=== PATIENT | female | born 1945 | race Two or more races ===

== ENCOUNTER 2019-08-10 17:44 | Emergency (ER) | payer MEDICARE, OTHER ==
[~2019-08-10] VITALS: Ht 152.4 cm; Wt 70.3 kg
[2019-08-10 18:14] VITALS: BP 214/106
[2019-08-10] MEDS ORDERED: cloNIDine HCL 0.1 MG TAB ONE (18:29)
[2019-08-10] MEDS ORDERED: cloNIDine HCL 0.1 MG TAB PO ONE (18:30)
== END 2019-08-10 22:19 | disposition home or self-care (01) ==
LOC: ER 18:04
DX: S93.401A Sprain of unspecified ligament of right ankle, initial encounter (principal); E11.9 Type 2 diabetes mellitus without complications; E78.5 Hyperlipidemia, unspecified; I10 Essential (primary) hypertension; Z76.0 Encounter for issue of repeat prescription; W01.0XXA Fall on same level from slipping, tripping and stumbling without subsequent striking against object, initial encounter; Y93.89 Activity, other specified; Y99.8 Other external cause status; Y92.59 Other trade areas as the place of occurrence of the external cause
CPT/HCPCS: 73600

== ENCOUNTER 2020-12-25 17:45 | Inpatient (IN) | payer MEDICARE ==
[~2020-12-25] VITALS: Ht 160 cm; Wt 68.0 kg
[2020-12-25] MEDS ORDERED: HYDROcodone-ACET 5/325MG TAB PO ONE (18:45)
[2020-12-25 21:13] LABS: Basophils # (auto) 0 10 ^3/uL (0-0.2); Basophils % (auto) 0.6 % (0.0-2.0); Eosinophils # (auto) 0.1 10 ^3/uL (0-0.8); Eosinophils % (auto) 1.3 % (0.0-7.0); Hematocrit 39.8 % (36.0-46.0); Hemoglobin 13.7 g/dL (12.2-16.2); Lymphocytes # (auto) 1.2 10 ^3/uL (0.4-5.4); Lymphocytes % (auto) 22.7 % (10.0-50.0); Mean Corpuscular Hemoglobin 29.2 pg (28.0-32.0); Mean Corpuscular Hgb Conc. 34.4 g/dL (32.0-36.0); Mean Corpuscular Volume 84.9 fL (80.0-100.0); Monocytes # (auto) 0.5 10 ^3/uL (0-1.3); Monocytes % (auto) 9.8 % (0.0-12.0); Neutrophils # (auto) 3.4 10 ^3/uL (1.6-8.6); Neutrophils % (auto) 65.6 % (37.0-80.0); Red Blood Cells 4.69 10^6/uL (4.0-5.20); Red Cell Distribution Width 13.7 % (11.8-14.3); White Blood Cell 5.1 10^3/uL (4.4-10.8)
[2020-12-25 21:23] LABS: Albumin 3.4 g/dL (3.4-5.0); BUN/Creatinine Ratio 18.9; Calcium 8.7 mg/dL (8.5-10.1)
[2020-12-25 21:26] LABS: Bilirubin, Total 0.6 mg/dL (0.2-1.0); Total Protein 7.1 g/dL (6.4-8.2)
[2020-12-25 21:30] LABS: INR 0.97 (0.9-1.15); Partial Thromboplastin Time 23.8 sec (23.0-31.2)
[2020-12-25] MEDS ORDERED: cloNIDine HCL 0.1 MG TAB PO PRN (21:45)
[2020-12-25] MEDS ORDERED: HYDROcodone-ACET 5/325MG TAB PO PRN (21:45)
[2020-12-25] MEDS ORDERED: TEMAZEPAM 15 MG CAP PO PRN (21:45)
[2020-12-25] MEDS ORDERED: ACETAMINOPHEN 325 MG TAB PO PRN (21:45)
[2020-12-25] MEDS ORDERED: SODIUM CHLORIDE 0.9% 500 ML IV ONE (21:45)
[2020-12-25] MEDS: FAMOTIDINE 20 MG TAB PO SCH (21:47)
[2020-12-25] MEDS ORDERED: FAMOTIDINE 20 MG TAB PO SCH (22:00)
[2020-12-25] MEDS: MORPHINE SULFATE 4 MG/ML SYR/VIAL IV PRN (22:02)
[2020-12-25] MEDS: ONDANSETRON HCL 4 MG/2 ML VIAL IV PRN (22:02)
[2020-12-25] MEDS ORDERED: DEXTROSE (50%) 50ML SYRG IV PRN (23:30)
[2020-12-25] MEDS ORDERED: InsuLIN REG 1unit/0.01ml Soln (100units/ml) IV ONE (23:30)
[2020-12-26] MEDS: MORPHINE SULFATE 4 MG/ML SYR/VIAL IV PRN (05:28)
[2020-12-26] MEDS: ONDANSETRON HCL 4 MG/2 ML VIAL IV PRN (05:28)
[2020-12-26] MEDS: InsuLIN REG 1unit/0.01ml Soln (100units/ml) SC SCH ×2 (06:32→12:30)
[2020-12-26] MEDS: ACCU-CHEK COMFORT CURVE STRIP VI SCH ×2 (06:33→12:25)
[2020-12-26 07:12] LABS: Basophils # (auto) 0 10 ^3/uL (0-0.2); Basophils % (auto) 0.5 % (0.0-2.0); Eosinophils # (auto) 0.1 10 ^3/uL (0-0.8); Eosinophils % (auto) 2.5 % (0.0-7.0); Hematocrit 35.7 % (36.0-46.0); Hemoglobin 12.2 g/dL (12.2-16.2); Lymphocytes # (auto) 1.1 10 ^3/uL (0.4-5.4); Lymphocytes % (auto) 18.9 % (10.0-50.0); Mean Corpuscular Hemoglobin 29.4 pg (28.0-32.0); Mean Corpuscular Hgb Conc. 34.2 g/dL (32.0-36.0); Monocytes # (auto) 0.6 10 ^3/uL (0-1.3); Monocytes % (auto) 10.7 % (0.0-12.0); Neutrophils % (auto) 67.4 % (37.0-80.0); Red Blood Cells 4.15 10^6/uL (4.0-5.20); Red Cell Distribution Width 13.8 % (11.8-14.3)
[2020-12-26 07:33] LABS: BUN/Creatinine Ratio 33.3; Calcium 8.5 mg/dL (8.5-10.1); Potassium 3.9 mmol/L (3.5-5.1)
[2020-12-26] MEDS: FAMOTIDINE 20 MG TAB PO SCH (10:14)
[2020-12-26] MEDS ORDERED: AMLO-489 PO ×2 (11:12→12:07)
[2020-12-26] MEDS ORDERED: SIMV-8 PO ×2 (11:12→12:07)
[2020-12-26] MEDS ORDERED: METF-370 PO ×2 (11:12→12:07)
[2020-12-26] MEDS ORDERED: METO25TA5 PO ×2 (11:12→12:07)
[2020-12-26] MEDS ORDERED: LISI40TA11 PO (11:12)
[2020-12-26 13:55] VITALS: BP 107/47
== END 2020-12-26 14:50 | disposition home or self-care (01) | DRG 563 ==
LOC: ER 17:45 → OVERFLOW 21:40
PROVIDERS: ADMIT Nurse Practitioner; ATTEND Internal Medicine
DX: S42.211A Unspecified displaced fracture of surgical neck of right humerus, initial encounter for closed fracture (principal); I10 Essential (primary) hypertension; E11.9 Type 2 diabetes mellitus without complications; E78.5 Hyperlipidemia, unspecified; W01.0XXA Fall on same level from slipping, tripping and stumbling without subsequent striking against object, initial encounter; Y93.89 Activity, other specified; Y92.89 Other specified places as the place of occurrence of the external cause; Y99.8 Other external cause status; Z20.822 Contact with and (suspected) exposure to COVID-19
CPT/HCPCS: 36415; 70450; 73060; 73070; 73130; 73200; 80048; 80053; 82962; 85025; 85610; 85730; 87426; 93971; 96360; G0378; J2405

== ENCOUNTER 2022-04-20 13:33 | Inpatient (IN) | payer MEDICARE ==
[~2022-04-20] VITALS: Ht 152.4 cm; Wt 60.4 kg
[~2022-04-20 13:33] MED LIST: AMLO-489 PO; LISI40TA11 PO; METF-370 PO; METO25TA5 PO; SIMV-8 PO
[2022-04-20 14:40] LABS: Basophils # (auto) 0 10 ^3/uL (0-0.2); Basophils % (auto) 0.3 % (0.0-2.0); Eosinophils # (auto) 0 10 ^3/uL (0-0.8); Hematocrit 36.3 % (36.0-46.0); Hemoglobin 12.5 g/dL (12.2-16.2); Lymphocytes # (auto) 0.4 10 ^3/uL (0.4-5.4); Lymphocytes % (auto) 3.9 % (10.0-50.0); Mean Corpuscular Hemoglobin 28.9 pg (28.0-32.0); Mean Corpuscular Hgb Conc. 34.3 g/dL (32.0-36.0); Mean Corpuscular Volume 84.3 fL (80.0-100.0); Monocytes # (auto) 0.8 10 ^3/uL (0-1.3); Monocytes % (auto) 7.1 % (0.0-12.0); Neutrophils % (auto) 88.7 % (37.0-80.0); Nucleated Red Blood Cells % 0.1 %; Red Blood Cells 4.31 10^6/uL (4.0-5.20); Red Cell Distribution Width 13.8 % (11.8-14.3); White Blood Cell 11.3 10^3/uL (4.4-10.8)
[2022-04-20 15:02] LABS: BUN/Creatinine Ratio 18.5; Calcium 8.4 mg/dL (8.5-10.1); Potassium 4.2 mmol/L (3.5-5.1)
[2022-04-20 15:16] LABS: Bilirubin, Total 3.4 mg/dL (0.2-1.0); Total Protein 7.2 g/dL (6.4-8.2)
[2022-04-20] MEDS ORDERED: IOHEXOL 300 MG/ML 100ML BOTTLE IJ ONE (17:07)
[2022-04-20] MEDS ORDERED: fentaNYL CITRATE 100 MCG/2 ML VL IV ONE (17:30)
[2022-04-20] MEDS ORDERED: ONDANSETRON HCL 4 MG/2 ML VIAL IV ONE (17:30)
[2022-04-20 18:45] LABS: Urine Bacteria FEW /hpf (None Seen); Urine Blood Negative /uL (Negative); Urine Specific Gravity 1.031 (1.001-1.035); Urine WBC 1 /hpf (0 - 5)
[2022-04-20] MEDS ORDERED: ONDANSETRON HCL 4 MG/2 ML VIAL IV PRN (22:00)
[2022-04-20] MEDS ORDERED: HYDROcodone-ACET 5/325MG TAB PO PRN (22:00)
[2022-04-20] MEDS ORDERED: ACETAMINOPHEN 325 MG TAB PO PRN (22:00)
[2022-04-20] MEDS ORDERED: DEXTROSE (50%) 50ML SYRG IV PRN (22:00)
[2022-04-20] MEDS: SODIUM CHLORIDE 0.9% 1,000 ML IV SCH (22:00)
[2022-04-20] MEDS ORDERED: MORPHINE SULFATE INJ 2 MG/ml SYRG IV PRN (23:00)
[2022-04-20] MEDS ORDERED: NITROGLYCERIN 0.4 MG SL TAB SL PRN (23:00)
[2022-04-21] MEDS ORDERED: metroNIDAZOLE 500MG/100ML 100 ML IV ONE (02:00)
[2022-04-21] MEDS: metroNIDAZOLE 500MG/100ML 100 ML IV SCH ×3 (05:30→22:12)
[2022-04-21] MEDS: ACCU-CHEK COMFORT CURVE STRIP VI SCH ×4 (06:00→17:58)
[2022-04-21] MEDS: InsuLIN REG 1unit/0.01ml Soln (100units/ml) SC SCH ×4 (07:30→17:58)
[2022-04-21 07:53] LABS: Basophils # (auto) 0 10 ^3/uL (0-0.2); Basophils % (auto) 0.4 % (0.0-2.0); Eosinophils # (auto) 0 10 ^3/uL (0-0.8); Eosinophils % (auto) 0.1 % (0.0-7.0); Hematocrit 35.4 % (36.0-46.0); Lymphocytes # (auto) 1.1 10 ^3/uL (0.4-5.4); Lymphocytes % (auto) 9.5 % (10.0-50.0); Mean Corpuscular Hemoglobin 29.3 pg (28.0-32.0); Monocytes # (auto) 1.1 10 ^3/uL (0-1.3); Monocytes % (auto) 9.9 % (0.0-12.0); Neutrophils % (auto) 80.1 % (37.0-80.0); Red Blood Cells 4.12 10^6/uL (4.0-5.20); Red Cell Distribution Width 13.8 % (11.8-14.3); White Blood Cell 11.3 10^3/uL (4.4-10.8)
[2022-04-21 08:10] LABS: Albumin 2.5 g/dL (3.4-5.0); Calcium 8.2 mg/dL (8.5-10.1); Potassium 3.7 mmol/L (3.5-5.1)
[2022-04-21 08:13] LABS: BUN/Creatinine Ratio 22.2
[2022-04-21 08:27] LABS: Bilirubin, Total 6.2 mg/dL (0.2-1.0); Total Protein 6.6 g/dL (6.4-8.2)
[2022-04-21] MEDS ORDERED: FAMOTIDINE (10MG/ML) 2ML VL IV SCH (10:00)
[2022-04-21] MEDS: ENOXAPARIN SOD 40 MG/0.4 ML SYRINGE SC SCH (11:25)
[2022-04-21 15:27] VITALS: BP 155/77
[2022-04-21 17:00] VITALS: BP 139/67
[2022-04-21] MEDS: SODIUM CHLORIDE 0.9% 1,000 ML IV SCH (17:22)
[2022-04-21 22:00] VITALS: BP 157/67
[2022-04-22] MEDS: ACCU-CHEK COMFORT CURVE STRIP VI SCH ×5 (00:24→23:18)
[2022-04-22 05:00] VITALS: BP 174/87
[2022-04-22] MEDS: hydrALAZINE HCL 20 MG/ML VL IV PRN ×2 (05:14→21:00)
[2022-04-22] MEDS: InsuLIN REG 1unit/0.01ml Soln (100units/ml) SC SCH ×5 (05:37→23:18)
[2022-04-22] MEDS: metroNIDAZOLE 500MG/100ML 100 ML IV SCH ×2 (05:37→17:27)
[2022-04-22 06:02] LABS: Basophils # (auto) 0 10 ^3/uL (0-0.2); Basophils % (auto) 0.7 % (0.0-2.0); Eosinophils # (auto) 0.1 10 ^3/uL (0-0.8); Hematocrit 35.6 % (36.0-46.0); Hemoglobin 12.2 g/dL (12.2-16.2); Lymphocytes # (auto) 1.2 10 ^3/uL (0.4-5.4); Lymphocytes % (auto) 17.4 % (10.0-50.0); Mean Corpuscular Hemoglobin 29.6 pg (28.0-32.0); Mean Corpuscular Hgb Conc. 34.3 g/dL (32.0-36.0); Mean Corpuscular Volume 86.2 fL (80.0-100.0); Monocytes # (auto) 0.6 10 ^3/uL (0-1.3); Monocytes % (auto) 8.5 % (0.0-12.0); Neutrophils # (auto) 4.9 10 ^3/uL (1.6-8.6); Neutrophils % (auto) 72.4 % (37.0-80.0); Nucleated Red Blood Cells % 0.1 %; Red Blood Cells 4.13 10^6/uL (4.0-5.20); Red Cell Distribution Width 14.3 % (11.8-14.3); White Blood Cell 6.8 10^3/uL (4.4-10.8)
[2022-04-22 06:10] LABS: INR 1.07 (0.9-1.15)
[2022-04-22 06:23] LABS: Calcium 8.3 mg/dL (8.5-10.1); Magnesium 1.7 mg/dL (1.6-2.6); Potassium 3.2 mmol/L (3.5-5.1)
[2022-04-22 06:41] LABS: Albumin 2.5 g/dL (3.4-5.0); BUN/Creatinine Ratio 39.6; Bilirubin, Total 3.3 mg/dL (0.2-1.0)
[2022-04-22] MEDS: SODIUM CHLORIDE 0.9% 1,000 ML IV SCH (07:20)
[2022-04-22 09:00] VITALS: BP 115/60
[2022-04-22] MEDS: ENOXAPARIN SOD 40 MG/0.4 ML SYRINGE SC SCH (09:31)
[2022-04-22 09:47] LABS: Hepatitis A Ab IgM Negative; Hepatitis B Core IgM Negative; Hepatitis C Antibody Negative (Negative)
[2022-04-22] MEDS ORDERED: MAGNESIUM SULFATE 1GM/100ML 100 ML IV ONE (12:45)
[2022-04-22 13:00] VITALS: BP 161/88
[2022-04-22] MEDS: POTASSIUM CHL 20MEQ/100ML 100 ML IV SCH ×2 (14:45→15:30)
[2022-04-22 17:00] VITALS: BP 184/83
[2022-04-22] MEDS ORDERED: POTASSIUM CHL 20MEQ/100ML 100 ML IV SCH (20:30)
[2022-04-22 21:30] VITALS: BP_SYST 136; BP_SYST 178; BP_DIAS 67; BP_DIAS 85
[2022-04-23] MEDS: metroNIDAZOLE 500MG/100ML 100 ML IV SCH ×2 (00:58→05:47)
[2022-04-23 05:00] VITALS: BP 136/69
[2022-04-23] MEDS: ACCU-CHEK COMFORT CURVE STRIP VI SCH ×4 (05:46→23:08)
[2022-04-23] MEDS: InsuLIN REG 1unit/0.01ml Soln (100units/ml) SC SCH ×4 (05:47→23:12)
[2022-04-23] MEDS: SODIUM CHLORIDE 0.9% 1,000 ML IV SCH ×2 (05:47→13:45)
[2022-04-23 06:28] LABS: Potassium 4.1 mmol/L (3.5-5.1)
[2022-04-23 06:36] LABS: Albumin 2.3 g/dL (3.4-5.0); BUN/Creatinine Ratio 45.7; Calcium 7.9 mg/dL (8.5-10.1); Magnesium 2.1 mg/dL (1.6-2.6); Total Protein 6.5 g/dL (6.4-8.2)
[2022-04-23] MEDS: ENOXAPARIN SOD 40 MG/0.4 ML SYRINGE SC SCH (09:43)
[2022-04-23] MEDS ORDERED: FAMOTIDINE (10MG/ML) 2ML VL IV SCH (10:00)
[2022-04-23 13:00] VITALS: BP 156/62
[2022-04-23] MEDS: hydrALAZINE HCL 20 MG/ML VL IV PRN (20:55)
[2022-04-23 22:00] VITALS: BP 186/92
[2022-04-24] VITALS (7 sets, daily range): BP systolic 110–179; BP diastolic 50–83
[2022-04-24] MEDS: ACCU-CHEK COMFORT CURVE STRIP VI SCH ×3 (05:56→17:42)
[2022-04-24] MEDS: InsuLIN REG 1unit/0.01ml Soln (100units/ml) SC SCH ×3 (05:59→17:47)
[2022-04-24 06:02] LABS: Albumin 2.2 g/dL (3.4-5.0); Bilirubin, Direct 0.7 mg/dL (0-0.2); Bilirubin, Total 2.2 mg/dL (0.2-1.0); Total Protein 6.2 g/dL (6.4-8.2)
[2022-04-24] MEDS: SODIUM CHLORIDE 0.9% 1,000 ML IV SCH (06:05)
[2022-04-24] MEDS: ENOXAPARIN SOD 40 MG/0.4 ML SYRINGE SC SCH (10:00)
[2022-04-25] MEDS ORDERED: LISINOPRIL 20 MG TAB PO SCH (10:00)
[2022-04-25] MEDS ORDERED: amLODIPine BESYLATE 5 MG TAB PO SCH (10:00)
== END 2022-04-24 22:00 | disposition short-term general hospital (02) | DRG 444 ==
LOC: ER 13:33 → EDBD 13:33 → TELE 22:58 → TELE-CENTR 04-21 14:56
PROVIDERS: ADMIT Nurse Practitioner Family; ATTEND Internal Medicine
DX: K80.51 Calculus of bile duct without cholangitis or cholecystitis with obstruction (principal); G93.41 Metabolic encephalopathy; E87.1 Hypo-osmolality and hyponatremia; R65.10 Systemic inflammatory response syndrome (SIRS) of non-infectious origin without acute organ dysfunction; D72.829 Elevated white blood cell count, unspecified; E78.5 Hyperlipidemia, unspecified; E11.65 Type 2 diabetes mellitus with hyperglycemia; E86.0 Dehydration; E87.6 Hypokalemia; I10 Essential (primary) hypertension; R19.7 Diarrhea, unspecified; R74.8 Abnormal levels of other serum enzymes; R79.89 Other specified abnormal findings of blood chemistry; Z90.49 Acquired absence of other specified parts of digestive tract; Z79.84 Long term (current) use of oral hypoglycemic drugs
CPT/HCPCS: 36415; 74177; 74181; 76705; 80053; 80061; 80074; 80076; 81001; 82010; 82140; 82962; 83036; 83605; 83690; 83735; 84484; 85025; 85610; 86038; 86301; 93005; 96365; 96375; 97116; 97163; 97530; 99291; G0378; J1815; J2405; J3480; J3490

== ENCOUNTER 2024-05-10 12:30 | Inpatient (IN) | payer MEDICARE ==
[~2024-05-10] VITALS: Ht 152.4 cm; Wt 54.3 kg
[~2024-05-10 12:30] MED LIST changes: -AMLO-489 PO; +AMLO1TAB22 PO; -LISI40TA11 PO; +LISI40TA16 PO; -SIMV-8 PO; +SIMV20TA20 PO
[2024-05-10] MEDS: SODIUM CHLORIDE 0.9% 500 ML IV ONE (15:57)
[2024-05-10 18:48] LABS: Basophils # (auto) 0 10 ^3/uL (0-0.2); Basophils % (auto) 0.2 % (0.0-2.0); Eosinophils # (auto) 0 10 ^3/uL (0-0.8); Eosinophils % (auto) 0.1 % (0.0-7.0); Hematocrit 43.1 % (36.0-46.0); Hemoglobin 14.7 g/dL (12.2-16.2); Lymphocytes # (auto) 1.2 10 ^3/uL (0.4-5.4); Lymphocytes % (auto) 13.8 % (10.0-50.0); Mean Corpuscular Hemoglobin 30.2 pg (28.0-32.0); Mean Corpuscular Hgb Conc. 34.1 g/dL (32.0-36.0); Mean Corpuscular Volume 88.5 fL (80.0-100.0); Monocytes # (auto) 0.5 10 ^3/uL (0-1.3); Monocytes % (auto) 5.2 % (0.0-12.0); Neutrophils # (auto) 7.2 10 ^3/uL (1.6-8.6); Neutrophils % (auto) 80.7 % (37.0-80.0); Nucleated Red Blood Cells % 0.1 %; Red Blood Cells 4.87 10^6/uL (4.0-5.20); Red Cell Distribution Width 12.7 % (11.8-14.3); White Blood Cell 8.9 10^3/uL (4.4-10.8)
[2024-05-10 19:07] LABS: Alanine Aminotransferase 13 U/L (7-40); Albumin 4.3 g/dL (3.2-4.8); Alkaline Phosphatase 98 U/L (46-116); Anion Gap 16 (5-15); Aspartate Aminotransferase 16 U/L (13-40); BUN/Creatinine Ratio 23.6 (10.0-20.0); Blood Urea Nitrogen 64 mg/dL (9-23); Carbon Dioxide 15 mmol/L (20-30); Chloride 107 mmol/L (98-107); Glucose 262 mg/dL (74-106); Potassium 3.6 mmol/L (3.5-5.1); Sodium 138 mmol/L (136-145)
[2024-05-10 19:08] LABS: Bilirubin, Total 0.7 mg/dL (0.2-1.0); Total Protein 6.6 g/dL (5.7-8.2)
[2024-05-10 20:11] LABS: Base Excess -6.3 mmol/L (-2.0-2.0)
[2024-05-10] MEDS ORDERED: MORPHINE SULFATE INJ 2 MG/ml SYRG IV PRN (20:30)
[2024-05-10] MEDS ORDERED: DEXTROSE (50%) 50ML SYRG IV PRN (20:30)
[2024-05-10] MEDS ORDERED: DOCUSATE SOD 100 MG CAP PO PRN (20:30)
[2024-05-10] MEDS ORDERED: ACETAMINOPHEN 325 MG TAB PO PRN (20:30)
[2024-05-10] MEDS ORDERED: ONDANSETRON HCL 4 MG/2 ML VIAL IV PRN (20:30)
[2024-05-10] MEDS ORDERED: HYDROcodone-ACET 5/325MG TAB PO PRN (20:30)
[2024-05-10] MEDS ORDERED: NITROGLYCERIN 0.4 MG SL TAB SL PRN (20:30)
[2024-05-10 22:30] VITALS: PULSE 88; RESP 15; O2SAT 97
[2024-05-10] MEDS: SODIUM CHLORIDE 0.9% 1,000 ML IV SCH (22:30)
[2024-05-10] MEDS: SODIUM BICARB 8.4% 50Meq/50ml SYR Vial IV ONE (22:46)
[2024-05-10] MEDS: ATORVASTATIN 20 MG TAB PO SCH (22:47)
[2024-05-10] MEDS: InsuLIN REG 1unit/0.01ml Soln (100units/ml) SC SCH (23:43)
[2024-05-11] VITALS (8 sets, daily range): BP systolic 100–177; BP diastolic 48–104; PULSE 69–98; RESP 16–19; TEMP 97.6–98.3; O2SAT 95–99
[2024-05-11] MEDS: ACCU-CHEK COMFORT CURVE STRIP VI SCH (00:04)
[2024-05-11 03:36] LABS: Urine Bacteria MANY /hpf (None Seen); Urine Blood 1+ /uL (Negative); Urine Clarity Turbid (Clear); Urine Color Light-Orange (Yellow); Urine Hyaline Cast FEW /lpf (0 - 2); Urine Mucus FEW (None Seen); Urine Protein, UAD 1+ (Negative); Urine Specific Gravity 1.017 (1.001-1.035); Urine Urobilinogen Normal (Negative); Urine WBC 12 /hpf (0 - 5)
[2024-05-11 07:35] LABS: Basophils # (auto) 0 10 ^3/uL (0-0.2); Basophils % (auto) 0.2 % (0.0-2.0); Eosinophils # (auto) 0 10 ^3/uL (0-0.8); Eosinophils % (auto) 0.6 % (0.0-7.0); Hematocrit 38.5 % (36.0-46.0); Hemoglobin 13.5 g/dL (12.2-16.2); Lymphocytes # (auto) 1.7 10 ^3/uL (0.4-5.4); Lymphocytes % (auto) 19.7 % (10.0-50.0); Mean Corpuscular Hemoglobin 30.7 pg (28.0-32.0); Mean Corpuscular Hgb Conc. 35.2 g/dL (32.0-36.0); Mean Corpuscular Volume 87.3 fL (80.0-100.0); Monocytes # (auto) 0.6 10 ^3/uL (0-1.3); Monocytes % (auto) 6.8 % (0.0-12.0); Neutrophils # (auto) 6.2 10 ^3/uL (1.6-8.6); Neutrophils % (auto) 72.7 % (37.0-80.0); Nucleated Red Blood Cells % 0.1 %; Red Blood Cells 4.41 10^6/uL (4.0-5.20); Red Cell Distribution Width 12.4 % (11.8-14.3); White Blood Cell 8.6 10^3/uL (4.4-10.8)
[2024-05-11 07:39] LABS: Albumin 3.6 g/dL (3.2-4.8); Alkaline Phosphatase 77 U/L (46-116); Anion Gap 15 (5-15); Aspartate Aminotransferase 8 U/L (13-40); BUN/Creatinine Ratio 27.4 (10.0-20.0); Bilirubin, Total 0.8 mg/dL (0.2-1.0); Calcium 8.7 mg/dL (8.7-10.4); Carbon Dioxide 19 mmol/L (20-30); Chloride 109 mmol/L (98-107); Glucose 115 mg/dL (74-106); Sodium 143 mmol/L (136-145); Total Protein 5.8 g/dL (5.7-8.2)
[2024-05-11 07:42] LABS: Alanine Aminotransferase 9 U/L (7-40); Blood Urea Nitrogen 48 mg/dL (9-23)
[2024-05-11] MEDS: FAMOTIDINE (10MG/ML) 2ML VL IV SCH (10:23)
[2024-05-11] MEDS: POTASSIUM EFFERVESENT TAB 25 MEQ PO ONE (10:23)
[2024-05-11] MEDS: ASPirin 81 mg TAB PO SCH (10:23)
[2024-05-11] MEDS: cefTRIAXone 1GM/50ML D5W 50 ML IV ONE (11:52)
[2024-05-11] MEDS: hydrALAZINE HCL 20 MG/ML VL IV PRN (11:53)
[2024-05-11] MEDS: SODIUM CHLORIDE 0.9% 1,000 ML IV SCH (17:30)
[2024-05-11 21:05] LABS: Protein, Urine 65.1 mg/dL (0.0-11.9)
[2024-05-11 21:07] LABS: Creatinine, Urine 164.26 mg/dL (30.0-125.0)
[2024-05-11] MEDS: METOPROLOL TARTRATE 25 MG TAB PO SCH (21:46)
[2024-05-11] MEDS: SODIUM BICARBONATE 650 MG TAB PO SCH (21:47)
[2024-05-12 01:00] VITALS: BP 156/91; PULSE 75; RESP 22; TEMP 97.8; O2SAT 97
[2024-05-12 05:00] VITALS: BP 132/76; PULSE 21; RESP 97; TEMP 98.3; O2SAT 97
[2024-05-12 06:24] LABS: Chloride 105 mmol/L (98-107); Potassium 4.1 mmol/L (3.5-5.1); Sodium 138 mmol/L (136-145)
[2024-05-12 06:25] LABS: Anion Gap 10 (5-15); Carbon Dioxide 23 mmol/L (20-30)
[2024-05-12 06:26] LABS: Calcium 8.4 mg/dL (8.7-10.4)
[2024-05-12 06:31] LABS: BUN/Creatinine Ratio 23.1 (10.0-20.0); Blood Urea Nitrogen 21 mg/dL (9-23); Glucose 110 mg/dL (74-106)
[2024-05-12 07:06] LABS: Basophils # (auto) 0 10 ^3/uL (0-0.2); Basophils % (auto) 0.5 % (0.0-2.0); Eosinophils # (auto) 0.1 10 ^3/uL (0-0.8); Eosinophils % (auto) 1.3 % (0.0-7.0); Hematocrit 42.3 % (36.0-46.0); Hemoglobin 14.4 g/dL (12.2-16.2); Lymphocytes # (auto) 1.8 10 ^3/uL (0.4-5.4); Lymphocytes % (auto) 26.3 % (10.0-50.0); Mean Corpuscular Hgb Conc. 33.9 g/dL (32.0-36.0); Mean Corpuscular Volume 88.5 fL (80.0-100.0); Monocytes # (auto) 0.6 10 ^3/uL (0-1.3); Monocytes % (auto) 8.6 % (0.0-12.0); Neutrophils # (auto) 4.3 10 ^3/uL (1.6-8.6); Neutrophils % (auto) 63.3 % (37.0-80.0); Nucleated Red Blood Cells % 0.3 %; Red Blood Cells 4.78 10^6/uL (4.0-5.20); Red Cell Distribution Width 12.7 % (11.8-14.3); White Blood Cell 6.8 10^3/uL (4.4-10.8)
[2024-05-12 08:59] VITALS: BP 116/78; PULSE 68; RESP 18; TEMP 98; O2SAT 97
[2024-05-12] MEDS: amLODIPine BESYLATE 5 MG TAB PO SCH (09:01)
[2024-05-12] MEDS: cefTRIAXone 1GM/50ML D5W 50 ML IV SCH (09:02)
[2024-05-12 13:00] VITALS: BP 136/54; PULSE 67; RESP 18; TEMP 97.9; O2SAT 98
[2024-05-12] MEDS ORDERED: NITR-87 PO (13:44)
[2024-05-12] MEDS ORDERED: MET25T PO (13:44)
[2024-05-12] MEDS ORDERED: METF-370 PO (13:44)
[2024-05-12 14:51] VITALS: BP 136/54; PULSE 67; RESP 18; TEMP 97.9; O2SAT 98
[2024-05-13 09:26] LABS: Hepatitis B Surface Antigen Negative (Negative)
[2024-05-13 09:54] LABS: Hepatitis C Antibody Negative (Negative)
== END 2024-05-12 16:12 | disposition home health service (06) | DRG 640 ==
LOC: ER 12:30 → EDUNIT# 12:30 → EDBD 12:30 → TELE 21:27 → TELE-WESTW 05-11 00:51 → WEST WING 05-11 18:51
PROVIDERS: ADMIT Nurse Practitioner Family; ATTEND Nurse Practitioner Acute Care
DX: E86.0 Dehydration (principal); G93.41 Metabolic encephalopathy; N17.0 Acute kidney failure with tubular necrosis; N30.91 Cystitis, unspecified with hematuria; E87.20 Acidosis, unspecified; E11.65 Type 2 diabetes mellitus with hyperglycemia; E78.5 Hyperlipidemia, unspecified; E86.1 Hypovolemia; E87.6 Hypokalemia; I10 Essential (primary) hypertension; Z83.3 Family history of diabetes mellitus; Z79.899 Other long term (current) drug therapy; Z79.84 Long term (current) use of oral hypoglycemic drugs
CPT/HCPCS: 36415; 36600; 70450; 71045; 76775; 80048; 80053; 81001; 82140; 82306; 82570; 82607; 82805; 82962; 83036; 83735; 83880; 83935; 84156; 84300; 84443; 85025; 86803; 87086; 87340; 93005; 97163; G0378; J1815; J3490